=== PATIENT | female | born 1960 | race Caucasian/White ===

== ENCOUNTER 2017-01-26 21:30 | Emergency (ER) | payer MEDICAID ==
[~2017-01-26] VITALS: Ht 162.6 cm; Wt 56.0 kg
[~2017-01-26 21:30] MED LIST: AMOXICILLIN500 MG OR; ATENOLOL25 MG PO; CIPROFLOXACIN500 M1 PO; CIPROFLOXACN500 MG PO; DOXYCYC MONO100 M1 PO; ENALAPRIL10 MG PO; FLEXERIL OR; LEVAQUIN500 MG OR; LORTAB 10-325 M1 TAB PO; LORTAB 1010 MG PO; METFORMIN500 MG PO; METFORMIN850 MG PO; METRONIDAZOL500 MG PO; METRONIDAZOLE500 MG PO; MOTRIN800 MG PO; NOVOLIN N1 ML SC; PAROXETINE10 MG PO; PAXIL40 MG OR; PERCOCET 5/325M1 TAB PO; ULTRAM50 M1 PO; ULTRAM50 MG OR; ZOFRAN ODT4 MG PO; ZOFRAN ODT4 MG SL; ZOFRAN4 M1 PO; ZOFRAN4 MG/TAB PO
[2017-01-26 22:03] LABS: HEMOGLOBIN 9.3 g/dl (12.0-16.0); IMMATURE GRANULOCYTES 1.4 % (0.0-1.0); MEAN CELL VOLUME 77.1 fL CALC (80.0-100.0); MEAN CORPUSCULAR HGB 23.1 pG CALC (26.0-32.0); NEUT# 5.8 thou/uL (2.00-7.15); RED BLOOD COUNT 4.02 mill/uL (4.20-5.60); RED CELL DISTRI WIDTH 19.4 % (11.5-15.5)
[2017-01-26 22:14] LABS: ALBUMIN 3.3 g/dL (3.2-5.0); ALKALINE PHOSPHATASE 361 u/l (38-126); ANION GAP 13 (6-22 (CALC)); BILIRUBIN, TOTAL 0.3 mg/dL (0.0-1.4); BUN 9 mg/dL (7-17); BUN/CREATININE RATIO 17 (12-20 (CALC)); CALCIUM 8.6 mg/dL (8.4-10.2); CARBON DIOXIDE 29 mmol/l (22-30); CHLORIDE 99 mmol/l (95-108); CREATININE 0.5 mg/dL (0.5-1.0); GFR > 60 ML/MIN (>=60 (CALC)); GFR FOR AFR.AMER. > 60 ML/MIN (>=60 (CALC)); GLUCOSE 75 mg/dL (65-105); POTASSIUM 3.7 mmol/l (3.5-5.1); SGOT/AST 29 u/l (14-36); SGPT/ALT 31 u/l (9-52); SODIUM 138 mmol/l (137-146); TOTAL PROTEIN 6.6 g/dL (6.3-8.2)
[2017-01-26 23:00] LABS: URINE BILIRUBIN - DIPSTICK NEGATIVE (NEGATIVE); URINE BLOOD DIPSTICK MODERATE (NEGATIVE); URINE COLOR YELLOW; URINE GLUCOSE - DIPSTICK NEGATIVE (NEGATIVE); URINE KETONE TRACE mg/dL (NEGATIVE); URINE LEUK ESTERASE NEGATIVE (NEGATIVE); URINE NITRITE - DIPSTICK NEGATIVE (Negative); URINE PH 6.5 (4.5-8.0); URINE PROTEIN - DIPSTICK NEGATIVE (NEG-TRACE)
[2017-01-26 23:04] LABS: URINE CLARITY SLIGHT CLOUDY
[2017-01-26] MEDS ORDERED: PERCOCET 10/31 COMBO PO (23:04)
[2017-01-26] MEDS ORDERED: LOVENOX 10100 MG/1 M SC (23:04)
[2017-01-26] MEDS ORDERED: JANTOVEN5 MG PO (23:05)
[2017-01-26 23:12] LABS: URINE BACTERIA FEW hpf; URINE MUCUS MANY hpf (NONE-FEW); URINE SQUAMOUS EPITHELIAL CELL MODERATE EPI/hpf (0-FEW)
[2017-01-26 23:22] LABS: INTERNATIONAL NORMALIZED RATIO > 13.0 RATIO (0.7-1.3); PROTHROMBIN TIME 189.9 SECONDS (9.0-12.5)
[2017-01-27 01:20] VITALS: BP 166/79
== END 2017-01-27 01:20 | disposition short-term general hospital (02) | DRG 761 ==
LOC: ED 21:30
PROVIDERS: Emergency Medicine
DX: N93.9 Abnormal uterine and vaginal bleeding, unspecified (principal); D50.9 Iron deficiency anemia, unspecified; T45.515A Adverse effect of anticoagulants, initial encounter; Z85.038 Personal history of other malignant neoplasm of large intestine; Z79.899 Other long term (current) drug therapy

== ENCOUNTER 2017-02-08 10:55 | Emergency (ER) | payer OTHER ==
[~2017-02-08] VITALS: Ht 162.6 cm; Wt 60.0 kg
[~2017-02-08 10:55] MED LIST changes: +JANTOVEN5 MG PO; +LOVENOX 10100 MG/1 M SC; +PERCOCET 10/31 COMBO PO
[2017-02-08 11:26] LABS: HEMATOCRIT 32.1 % (37.0-47.0); IMMATURE GRANULOCYTES 0.5 % (0.0-1.0); MEAN CELL VOLUME 77.5 fL CALC (80.0-100.0); MEAN CORPUSCULAR HGB 24.2 pG CALC (26.0-32.0); MEAN CORPUSCULAR HGB CONC 31.2 g/L CALC (32.0-36.0); NEUT# 7.72 thou/uL (2.00-7.15); RED BLOOD COUNT 4.14 mill/uL (4.20-5.60); RED CELL DISTRI WIDTH 20.6 % (11.5-15.5)
[2017-02-08 11:44] LABS: ALBUMIN 3.3 g/dL (3.2-5.0); ALKALINE PHOSPHATASE 425 u/l (38-126); AMYLASE 32 u/l (30-110); ANION GAP 20 (6-22 (CALC)); BILIRUBIN, TOTAL 0.9 mg/dL (0.0-1.4); BUN 7 mg/dL (7-17); BUN/CREATININE RATIO 16 (12-20 (CALC)); CALCIUM 8.9 mg/dL (8.4-10.2); CARBON DIOXIDE 24 mmol/l (22-30); CHLORIDE 97 mmol/l (95-108); CREATININE 0.4 mg/dL (0.5-1.0); GFR > 60 ML/MIN (>=60 (CALC)); GFR FOR AFR.AMER. > 60 ML/MIN (>=60 (CALC)); GLUCOSE 335 mg/dL (65-105); LIPASE 18 u/l (23-300); POTASSIUM 4.7 mmol/l (3.5-5.1); SGOT/AST 44 u/l (14-36); SGPT/ALT 34 u/l (9-52); SODIUM 136 mmol/l (137-146)
[2017-02-08] MEDS ORDERED: DICYCLOMINE10 MG PO (11:51)
[2017-02-08] MEDS ORDERED: LEVEMIR1000 UNITS SC (11:54)
[2017-02-08] MEDS ORDERED: POLYETHYLENE GLYCO2 PO (11:55)
[2017-02-08 11:56] LABS: MYOGLOBIN 14 ng/mL (0 - 62)
[2017-02-08] MEDS ORDERED: LORTAB 10-325 M1 TAB PO (13:16)
[2017-02-08 13:17] VITALS: BP 152/80
== END 2017-02-08 13:37 | disposition home or self-care (01) | DRG 638 ==
LOC: ED 10:55
PROVIDERS: Emergency Medicine
DX: E11.65 Type 2 diabetes mellitus with hyperglycemia (principal); C18.9 Malignant neoplasm of colon, unspecified; L40.50 Arthropathic psoriasis, unspecified; I10 Essential (primary) hypertension; M06.9 Rheumatoid arthritis, unspecified; M79.7 Fibromyalgia

== ENCOUNTER 2017-04-20 22:17 | Inpatient (IN) | payer OTHER ==
[~2017-04-20] VITALS: Ht 162.6 cm; Wt 62.7 kg
[~2017-04-20 22:17] MED LIST changes: +DICYCLOMINE10 MG PO; +LEVEMIR1000 UNITS SC; +POLYETHYLENE GLYCO2 PO
--- NOTE | 2017-04-20 22:50 | NUR ---
QA/O F WITH N/V AND UPPER BACK PAIN HAS HX LIVER CA WITH IV PUMP WITH CHEMO INFUSING INTO R CHEST IV PORT DR ESTRADA INSPECTS MED NOW. ABD IS SL DISTENDED AND FIRM PT HAS HX ASCITIES AITH TAP 1 MONTH AGO FOR 5L AND SCHED FOR ANOTHER ABD TAP AFTER PET SCAN LATER THIS MONTH. QW/P/D SKIN CLEAR BREATH SOUNDS.
[2017-04-20 23:18] LABS: HEMATOCRIT 35.7 % (37.0-47.0); IMMATURE GRANULOCYTES 0.2 % (0.0-1.0); MEAN CELL VOLUME 90.4 fL CALC (80.0-100.0); MEAN CORPUSCULAR HGB 27.8 pG CALC (26.0-32.0); MEAN CORPUSCULAR HGB CONC 30.8 g/L CALC (32.0-36.0); NEUT# 7.49 thou/uL (2.00-7.15); RED BLOOD COUNT 3.95 mill/uL (4.20-5.60); RED CELL DISTRI WIDTH 17.4 % (11.5-15.5)
[2017-04-20 23:28] LABS: INTERNATIONAL NORMALIZED RATIO 3.4 RATIO (0.7-1.3)
[2017-04-20 23:32] LABS: ALBUMIN 3.6 g/dL (3.2-5.0); ALKALINE PHOSPHATASE 425 u/l (38-126); ANION GAP 16 (6-22 (CALC)); BILIRUBIN, TOTAL 1.7 mg/dL (0.0-1.4); BUN 12 mg/dL (7-17); BUN/CREATININE RATIO 23 (12-20 (CALC)); CARBON DIOXIDE 31 mmol/l (22-30); CHLORIDE 98 mmol/l (95-108); CREATININE 0.5 mg/dL (0.5-1.0); GFR > 60 ML/MIN (>=60 (CALC)); GFR FOR AFR.AMER. > 60 ML/MIN (>=60 (CALC)); GLUCOSE 77 mg/dL (65-105); POTASSIUM 3.6 mmol/l (3.5-5.1); SGOT/AST 117 u/l (14-36); SGPT/ALT 80 u/l (9-52); SODIUM 141 mmol/l (137-146); TOTAL PROTEIN 6.8 g/dL (6.3-8.2)
[2017-04-20 23:43] LABS: MYOGLOBIN 13 ng/mL (0 - 62)
[2017-04-21] VITALS (8 sets, daily range): BP systolic 136–198; BP diastolic 78–97
--- NOTE | 2017-04-21 00:30 | NUR ---
PT HAD RAC SALINE LOC DISPLACED WAS RESTARTE DL WRIST PT REMEDICATED FOR ONGOING PAIN.
--- NOTE | 2017-04-21 01:45 | NUR ---
PT FEELS BETTER HAVING LESS PAIN NO N/V.RATES PAIN AT 4 NOW
--- NOTE | 2017-04-21 02:23 | NUR ---
TO FLOOR IN IMPROVED STABLE CONDITION
--- NOTE | 2017-04-21 02:33 | NUR ---
PT ARRIVED TO UNIT VIA STRETCHER WITH ER STAFF. AMBULATED TO BATHROOM TO VOID WITH ONE PERSON ASSIST. C/O BACK PAIN AND NAUSEA. ANTIEMETIC GIVEN ORDERED. ASSESSMENT COMPLETED AT THIS TIME. ORIENTED TO ROOM AND CALL LIGHT SYSTEM. PLAN OF CARE DISCUSSED. PT ENCOURAGED TO VERBALIZE CONCERNS. STATES UNDERSTANDING. SAFETY MEASURES PUT IN PLACE. CALL LIGHT WITHIN REACH.
[2017-04-21 03:29] LABS: URINE BILIRUBIN - DIPSTICK NEGATIVE (NEGATIVE); URINE BLOOD DIPSTICK NEGATIVE (NEGATIVE); URINE CLARITY CLEAR; URINE COLOR YELLOW; URINE GLUCOSE - DIPSTICK NEGATIVE (NEGATIVE); URINE KETONE NEGATIVE (NEGATIVE); URINE LEUK ESTERASE NEGATIVE (NEGATIVE); URINE NITRITE - DIPSTICK NEGATIVE (Negative); URINE PROTEIN - DIPSTICK NEGATIVE (NEG-TRACE); URINE UROBILINOGEN - DIPSTICK 0.2 E.U./dL (0.2)
--- NOTE | 2017-04-21 07:00 | NUR ---
SHIFT CHANGE REPORT FROM MICHAELA, PT AWAKE AND ALERT, C/O ABD PAIN AND NAUSEA, IVF INFUSING, TELE MONITOR IN PLACE, CALL BROWN IN REACH.
[2017-04-21 10:49] LABS: INTERNATIONAL NORMALIZED RATIO 2.5 RATIO (0.7-1.3); PROTHROMBIN TIME 29.7 SECONDS (9.0-12.5)
--- NOTE | 2017-04-21 12:00 | NUR ---
PT CONCERNED ABOUT TURNING OFF CHEMO PUMP STATING SHE HAD APPOINTMENT WITH ONCOLOGIST FOR TODAY @ 1500 TO TURN OFF PUMP, RN DELIVERY NOTIFIED AND ADDRESSED SITUATION, CHEMO-CERTIFIED RN CONSULTED AND ADDRESSED CONCERN.
--- NOTE | 2017-04-21 15:00 | NUR ---
VISITIED PATIENT REGARDING CHEMO INFUSION. PATIENT IS SEEN BY DR PIZANO AT [facility] ([facility] FOR HER CHEMO. SHE LAST HAD CHEMO ON 04/19 AND HAS CADD PUMP WITH INFUSION COMPLETED TODAY. INFORMED PATIENT THAT WE ARE ATTEMPTING TO REACH [facility] FOR ORDERS TO DC CADD PUMP AND FLUSH PORT.
--- NOTE | 2017-04-21 16:00 | NUR ---
STILL NO ORDERS FROM [facility] REGARDING DC OF CADD PUMP. [facility] SPOKE WITH BON/ELIANA, SHE STATES SHE WILL GET ORERS AND CALL US BACK.
--- NOTE | 2017-04-21 16:30 | NUR ---
RECEIVED ORDERS TO DC CADD PUMP AND FLUSH PORT PER HOSPITAL PROTOCOL. INSTRUCTED TO GIVE PATIENT PUMP AND HAVE THEM RETURN IT TO [facility] ON MONDAY WHEN SHE REPORTS FOR HER NEXT CHEMO INFUSION.
--- NOTE | 2017-04-21 16:35 | NUR ---
CADD PUMP DC'D AND PORT FLUSHED PER PROTOCOL AND DEACCESSED WITH NEEDLE INTACT. STERILE 2X2 SECURED WITH TEGADERM APPLIED TO SITE. PUMP PLACED IN YELLOW BAG AND PLACED WITH PATIENT BELONGINGS. PATIENT INSTRUCTED TO RETURN PUMP TO [facility] WHEN SHE HAS HER NEXT TREATMENT.
--- NOTE | 2017-04-21 17:00 | NUR ---
PUMP TURNED OFF BY CHEMO-CERTIFIED RN, ALICIA HARMON, WILL CONTINUE TO MONITOR.
--- NOTE | 2017-04-21 20:02 | NUR ---
BEDSIDE REPORT RECEIVED FROM ELIANA CHENG. PT ASLEEP AT THIS TIME. NO SIGNS OF DISTRESS NOTED. RESPIRATIONS EVEN AND UNLABORED. SAFETY MEASURES IN PLACE. CALL LIGHT WITHIN REACH.
--- NOTE | 2017-04-22 00:10 | NUR ---
PT ASLEEP AT THIS TIME. QUIET WITH NO REQUESTS. NO SIGNS OF DISTRESS NOTED. RESPIRATIONS EVEN AND UNLABORED. SAFETY MEASURES REMAIN IN PLACE. CALL LIGHT WITHIN REACH.
--- NOTE | 2017-04-22 04:09 | NUR ---
PT ASLEEP AT THIS TIME. NO SIGNS OF DISTRESS NOTED. RESPIRATIONS EVEN AND UNLABORED. NO CHANGES IN ASSESSMENT NOTED. SAFETY MEASURES IN PLACE. CALL LIGHT WITHIN REACH.
[2017-04-22 04:40] VITALS: BP 155/62
--- NOTE | 2017-04-22 05:10 | NUR ---
PT UP TO BATHROOM AND C/O RIGHT FLANK PAIN. IV SITE FOUND DISLODGED TO LEFT WRIST. NEW IV START TO RAC AND ANALGESIC GIVEN WITH GOOD EFFECT. PT STATES THAT SHE IS FEELING MUCH BETTER AND HER APETITE IS BACK; INQUIRING ABOUT BREAKFAST. REQUESTED BLOOD SUGAR CHECK; 294 AT THIS TIME. DECLINED SNACK. NO OTHER REQUESTS AT THIS TIME. IV FLUIDS INFUSING INTO NEW SITE APPROPRIATELY.
--- NOTE | 2017-04-22 07:00 | NUR ---
REPORT RECIEVED FROM SPIKE JENNINGS; PT SITTING UP IN BED; PT C/O PAIN RATING 8 OUT OF 10 IN RIGHT SIDE AND FLANK; ELIANA LUCAS AT BEDSIDE TO MEDICATE; PT DENIES ANY OTHER NEEDS AT THIS TIME; CALL LIGHT WITHIN REACH; WILL CONTINUE TO MONITOR
[2017-04-22 07:04] VITALS: BP 154/81
[2017-04-22 07:12] LABS: HEMATOCRIT 39.2 % (37.0-47.0); HEMOGLOBIN 12.1 g/dl (12.0-16.0); IMMATURE GRANULOCYTES 0.4 % (0.0-1.0); MEAN CELL VOLUME 90.3 fL CALC (80.0-100.0); MEAN CORPUSCULAR HGB 27.9 pG CALC (26.0-32.0); MEAN CORPUSCULAR HGB CONC 30.9 g/L CALC (32.0-36.0); NEUT# 6.07 thou/uL (2.00-7.15); RED BLOOD COUNT 4.34 mill/uL (4.20-5.60); RED CELL DISTRI WIDTH 18.2 % (11.5-15.5)
[2017-04-22 07:27] LABS: PROTHROMBIN TIME 35.5 SECONDS (9.0-12.5)
[2017-04-22 08:47] LABS: ANION GAP 13 (6-22 (CALC)); BUN 13 mg/dL (7-17); BUN/CREATININE RATIO 25 (12-20 (CALC)); CALCIUM 8.5 mg/dL (8.4-10.2); CARBON DIOXIDE 27 mmol/l (22-30); CHLORIDE 100 mmol/l (95-108); CREATININE 0.5 mg/dL (0.5-1.0); GFR > 60 ML/MIN (>=60 (CALC)); GFR FOR AFR.AMER. > 60 ML/MIN (>=60 (CALC)); GLUCOSE 291 mg/dL (65-105); POTASSIUM 4.3 mmol/l (3.5-5.1); SODIUM 135 mmol/l (137-146)
[2017-04-22 11:12] VITALS: BP 128/68
--- NOTE | 2017-04-22 12:45 | NUR ---
PT C/O PAIN RATING 10 OUT OF 10 MEDICATED WITH DILAUDID PER PRN ORDERS; CALL LIGHT WITHIN REAC; WILL CONTINUE TO MONITOR
[2017-04-22 15:31] VITALS: BP 128/73
--- NOTE | 2017-04-22 17:00 | NUR ---
PT MEDICATED WITH ROXYCODONE PER PRN ORDERS FOR PAIN IN BACK RATING 8 OUT OF 10; NO APPARENT DISTRESS NOTED AT THIS TIME; CALL LIGHT WITHIN REACH; WILL CONTINUE TO MONITOR
--- NOTE | 2017-04-22 19:40 | NUR ---
PT RESTING IN SEMIFOWLERS WITH EYES CLOSED RESPIRATIONS EVEN AND UNLABORED. CALL LIGHT IN REACH.
[2017-04-22 20:47] VITALS: BP 138/72
--- NOTE | 2017-04-22 21:52 | NUR ---
ACCUCHECK 338, MEDICATED WITH NOVULOG 5UNITS SQ PER DR. BURDEN'S ORDER. TOLERATED WELL. BED TIME SNACK PROVIDED. MEDICATED WITH PHENERGAN IM TO RIGHT ARM FOR C/O NAUSEA. IV FLUIDS INFUSING TO RAC WITH NO COMPLICATIONS. CALL LIGHT IN REACH.
[2017-04-23 00:57] VITALS: BP 151/83
--- NOTE | 2017-04-23 01:13 | NUR ---
MEDICATED WITH DILAUDID 1MG IV FOR C/O RIGHT FLANK PAIN 06/08.
--- NOTE | 2017-04-23 03:57 | NUR ---
MEDICATED WIT ROXICODONE FOR RIGHT FLANK PAIN 06/08. RESPIRATIONS EVEN AND UNLABORED. CALL LIGHT IN REACH.
[2017-04-23 04:50] VITALS: BP 131/84
[2017-04-23 06:13] LABS: INTERNATIONAL NORMALIZED RATIO 2.3 RATIO (0.7-1.3); PROTHROMBIN TIME 26.3 SECONDS (9.0-12.5)
[2017-04-23 07:41] VITALS: BP 137/75
--- NOTE | 2017-04-23 07:46 | NUR ---
REPORT RECIEVED FROM SPIKE RAYMOND; PT RESTING IN BED WITH EYES CLOSED; NO S/S OF DISTRESS NOTED; PT EASILY AROUSABLE; VSS; PT MEDICATED WITH AM MEDS; PT DENIES ANY OTHER NEEDS AT THIS TIME; ASSESSMENT COMPLETED; IVF INFUSING AT PRESCRIBED RATE; IV SITE APPEARS HEALTHY;CALL LIGHT WITHIN REACH; WILL CONTINUE TO MONITOR
[2017-04-23 11:08] VITALS: BP 130/66
--- NOTE | 2017-04-23 11:30 | NUR ---
PT RESTING IN BED; NO S/S OF DISTRESS NOTED; PT C/O PAIN RATING 7 OUT OF 10; MEDICATED WITH ROXYCODONE PER PRN ORDERS; IVF INFUSING TO #22 TO RAC; IV SITE APPEARS HEALTHY; PT DENIES ANY OTHER NEEDS AT THIS TIME; CALL LIGHT WITHIN REACH; WILL CONTINUE TO MONITOR
[2017-04-23 15:14] VITALS: BP 129/67
--- NOTE | 2017-04-23 16:00 | NUR ---
TELE AND IV REMOVED FOR DISCHARGE; PT C/O PAIN RATING 8 OUF OF 10; MEDICATED WITH ROXYCODONE PER PRN ORDERS; PT DENIES ANY OTHER NEEDS AT THIS TIME; DISCHARGE INSTRUCTIONS GIVEN; PT STATES HER FAMILY WILL ARRIVE LATER THIS AFTERNOON; CALL LIGHT WITHIN REACH; WILL CONTINUE TO MONITOR
--- NOTE | 2017-04-23 18:44 | NUR ---
Discharge instructions given. Patient verbalizes understanding of same. Discharged in stable condition via Wheelchair to Home with family. All belongings sent with pt.
== END 2017-04-23 18:44 | disposition home or self-care (01) | DRG 948 ==
LOC: ENPENDDIS → ED 22:17 → ED-I 23:50 → ED 04-21 00:08 → MS2 04-21 00:09
PROVIDERS: Emergency Medicine; Internal Medicine; ADMIT Internal Medicine; ATTEND Internal Medicine
DX: G89.3 Neoplasm related pain (acute) (chronic) (principal); C78.7 Secondary malignant neoplasm of liver and intrahepatic bile duct; R18.8 Other ascites; E11.649 Type 2 diabetes mellitus with hypoglycemia without coma; C18.9 Malignant neoplasm of colon, unspecified; L40.50 Arthropathic psoriasis, unspecified; R11.2 Nausea with vomiting, unspecified; T45.1X5A Adverse effect of antineoplastic and immunosuppressive drugs, initial encounter; Z79.4 Long term (current) use of insulin; I10 Essential (primary) hypertension; M79.7 Fibromyalgia; D64.9 Anemia, unspecified; M06.9 Rheumatoid arthritis, unspecified; R79.1 Abnormal coagulation profile; T45.515A Adverse effect of anticoagulants, initial encounter; Z90.49 Acquired absence of other specified parts of digestive tract; Z86.718 Personal history of other venous thrombosis and embolism

== ENCOUNTER 2017-07-10 06:23 | Inpatient (IN) | payer OTHER ==
[~2017-07-10] VITALS: Ht 162.6 cm; Wt 59.0 kg
[2017-07-10 07:27] LABS: HEMATOCRIT 25.5 % (37.0-47.0); HEMOGLOBIN 8.3 g/dl (12.0-16.0); IMMATURE GRANULOCYTES 0.6 % (0.0-1.0); MEAN CELL VOLUME 91.1 fL CALC (80.0-100.0); MEAN CORPUSCULAR HGB 29.6 pG CALC (26.0-32.0); MEAN CORPUSCULAR HGB CONC 32.5 g/L CALC (32.0-36.0); NEUT# 12.24 thou/uL (2.00-7.15); RED BLOOD COUNT 2.8 mill/uL (4.20-5.60); RED CELL DISTRI WIDTH 16.1 % (11.5-15.5)
[2017-07-10 07:34] LABS: ALBUMIN 2.6 g/dL (3.2-5.0); ALKALINE PHOSPHATASE 569 u/l (38-126); AMYLASE < 30 u/l (30-110); ANION GAP 14 (6-22 (CALC)); BILIRUBIN, TOTAL 5.9 mg/dL (0.0-1.4); BUN 18 mg/dL (7-17); BUN/CREATININE RATIO 32 (12-20 (CALC)); CALCIUM 8.4 mg/dL (8.4-10.2); CARBON DIOXIDE 29 mmol/l (22-30); CHLORIDE 96 mmol/l (95-108); CREATININE 0.6 mg/dL (0.5-1.0); GFR > 60 ML/MIN (>=60 (CALC)); GFR FOR AFR.AMER. > 60 ML/MIN (>=60 (CALC)); GLUCOSE 87 mg/dL (65-105); LIPASE 11 u/l (23-300); POTASSIUM 3.7 mmol/l (3.5-5.1); SGOT/AST 89 u/l (14-36); SGPT/ALT 74 u/l (9-52); SODIUM 134 mmol/l (137-146); TOTAL PROTEIN 5.5 g/dL (6.3-8.2)
[2017-07-10 10:29] LABS: INTERNATIONAL NORMALIZED RATIO > 10.0 RATIO (0.7-1.3); PROTHROMBIN TIME > 130.0 SECONDS (9.0-12.5)
[2017-07-10] MEDS ORDERED: LEVEMIR FL100 UNIT/M SC (10:40)
[2017-07-10] MEDS ORDERED: ATENOLOL25 MG PO (10:42)
[2017-07-10] MEDS ORDERED: METOLAZONE5 MG PO (10:42)
[2017-07-10] MEDS ORDERED: OXYCODONE HCL5 MG PO (10:43)
[2017-07-10] MEDS ORDERED: COUMADIN4 MG PO (10:45)
[2017-07-10] MEDS ORDERED: ONDANSETRON4 MG PO (10:46)
[2017-07-10] MEDS ORDERED: FUROSEMIDE20 MG PO (10:46)
[2017-07-10] MEDS ORDERED: KLOR-CON M2020 MEQ PO (10:47)
[2017-07-10 12:06] VITALS: BP 109/43
[2017-07-10 15:34] VITALS: BP 100/53
[2017-07-10 17:02] LABS: MEAN CORPUSCULAR HGB 29.9 pG CALC (26.0-32.0); MEAN CORPUSCULAR HGB CONC 32.8 g/L CALC (32.0-36.0); RED BLOOD COUNT 2.01 mill/uL (4.20-5.60); RED CELL DISTRI WIDTH 16.2 % (11.5-15.5)
[2017-07-10 17:04] LABS: HEMATOCRIT 18.3 % (37.0-47.0)
[2017-07-10 18:05] LABS: URINE BLOOD DIPSTICK LARGE (NEGATIVE); URINE CLARITY TURBID; URINE COLOR YELLOW; URINE GLUCOSE - DIPSTICK NEGATIVE (NEGATIVE); URINE KETONE NEGATIVE (NEGATIVE); URINE LEUK ESTERASE NEGATIVE (NEGATIVE); URINE NITRITE - DIPSTICK NEGATIVE (Negative); URINE PH 5.5 (4.5-8.0); URINE PROTEIN - DIPSTICK TRACE mg/dL (NEG-TRACE); URINE SPECIFIC GRAVITY 1.015; URINE UROBILINOGEN - DIPSTICK 0.2 E.U./dL (0.2)
[2017-07-10 18:07] LABS: URINE BILIRUBIN - DIPSTICK MODERATE (NEGATIVE)
[2017-07-10 18:24] LABS: URINE BACTERIA FEW hpf; URINE RBC >100 RBC/hpf (0-5); URINE RED BLOOD CELL CAST FEW lpf; URINE SQUAMOUS EPITHELIAL CELL FEW EPI/hpf (0-FEW)
[2017-07-10 19:24] VITALS: BP 97/61
[2017-07-10 20:15] VITALS: BP 110/58
[2017-07-10 21:05] VITALS: BP 110/68
[2017-07-10 22:26] VITALS: BP 119/69
[2017-07-11] VITALS (14 sets, daily range): BP systolic 105–121; BP diastolic 58–77
[2017-07-11 05:46] LABS: HEMOGLOBIN 7.1 g/dl (12.0-16.0); IMMATURE GRANULOCYTES 0.7 % (0.0-1.0); MEAN CELL VOLUME 88.6 fL CALC (80.0-100.0); MEAN CORPUSCULAR HGB CONC 33.8 g/L CALC (32.0-36.0); NEUT# 16.26 thou/uL (2.00-7.15); RED BLOOD COUNT 2.37 mill/uL (4.20-5.60); RED CELL DISTRI WIDTH 16.7 % (11.5-15.5)
[2017-07-11 06:45] LABS: ANION GAP 11 (6-22 (CALC)); BUN 19 mg/dL (7-17); BUN/CREATININE RATIO 28 (12-20 (CALC)); CALCIUM 7.9 mg/dL (8.4-10.2); CARBON DIOXIDE 28 mmol/l (22-30); CHLORIDE 98 mmol/l (95-108); CREATININE 0.7 mg/dL (0.5-1.0); GFR > 60 ML/MIN (>=60 (CALC)); GFR FOR AFR.AMER. > 60 ML/MIN (>=60 (CALC)); GLUCOSE 75 mg/dL (65-105); POTASSIUM 3.7 mmol/l (3.5-5.1); SODIUM 134 mmol/l (137-146)
[2017-07-11 07:23] LABS: PROTHROMBIN TIME > 130.0 SECONDS (9.0-12.5)
[2017-07-11 07:24] LABS: INTERNATIONAL NORMALIZED RATIO > 10.0 RATIO (0.7-1.3)
[2017-07-12] VITALS (11 sets, daily range): BP systolic 108–120; BP diastolic 61–72
[2017-07-12 06:04] LABS: IMMATURE GRANULOCYTES 0.8 % (0.0-1.0); MEAN CORPUSCULAR HGB 30.1 pG CALC (26.0-32.0); MEAN CORPUSCULAR HGB CONC 34.2 g/L CALC (32.0-36.0); NEUT# 12.3 thou/uL (2.00-7.15); RED BLOOD COUNT 2.16 mill/uL (4.20-5.60); RED CELL DISTRI WIDTH 16.2 % (11.5-15.5)
[2017-07-12 06:06] LABS: ANION GAP 11 (6-22 (CALC)); BUN 24 mg/dL (7-17); BUN/CREATININE RATIO 39 (12-20 (CALC)); CALCIUM 7.9 mg/dL (8.4-10.2); CARBON DIOXIDE 28 mmol/l (22-30); CHLORIDE 94 mmol/l (95-108); CREATININE 0.6 mg/dL (0.5-1.0); GFR > 60 ML/MIN (>=60 (CALC)); GFR FOR AFR.AMER. > 60 ML/MIN (>=60 (CALC)); GLUCOSE 234 mg/dL (65-105); MAGNESIUM 1.7 mg/dL (1.6-2.3); POTASSIUM 3.7 mmol/l (3.5-5.1); SODIUM 131 mmol/l (137-146)
[2017-07-12 06:15] LABS: HEMOGLOBIN 6.5 g/dl (12.0-16.0)
[2017-07-12 06:46] LABS: INTERNATIONAL NORMALIZED RATIO 4.9 RATIO (0.7-1.3); PROTHROMBIN TIME 60.1 SECONDS (9.0-12.5)
[2017-07-13] VITALS (9 sets, daily range): BP systolic 95–164; BP diastolic 62–82
[2017-07-13 06:05] LABS: HEMATOCRIT 26.8 % (37.0-47.0); HEMOGLOBIN 9.3 g/dl (12.0-16.0); IMMATURE GRANULOCYTES 0.6 % (0.0-1.0); MEAN CELL VOLUME 86.5 fL CALC (80.0-100.0); MEAN CORPUSCULAR HGB CONC 34.7 g/L CALC (32.0-36.0); NEUT# 14.98 thou/uL (2.00-7.15); RED BLOOD COUNT 3.1 mill/uL (4.20-5.60); RED CELL DISTRI WIDTH 15.5 % (11.5-15.5)
[2017-07-13 06:18] LABS: ANION GAP 11 (6-22 (CALC)); BUN 18 mg/dL (7-17); BUN/CREATININE RATIO 38 (12-20 (CALC)); CALCIUM 6.8 mg/dL (8.4-10.2); CARBON DIOXIDE 25 mmol/l (22-30); CHLORIDE 101 mmol/l (95-108); CREATININE 0.5 mg/dL (0.5-1.0); GFR > 60 ML/MIN (>=60 (CALC)); GFR FOR AFR.AMER. > 60 ML/MIN (>=60 (CALC)); GLUCOSE 120 mg/dL (65-105); MAGNESIUM 1.5 mg/dL (1.6-2.3); POTASSIUM 3.2 mmol/l (3.5-5.1); SODIUM 134 mmol/l (137-146)
[2017-07-13 06:21] LABS: INTERNATIONAL NORMALIZED RATIO 6.6 RATIO (0.7-1.3); PROTHROMBIN TIME 82.4 SECONDS (9.0-12.5)
[2017-07-14] VITALS (8 sets, daily range): BP systolic 92–133; BP diastolic 57–86
[2017-07-14 05:47] LABS: HEMOGLOBIN 8.5 g/dl (12.0-16.0); IMMATURE GRANULOCYTES 1.1 % (0.0-1.0); MEAN CELL VOLUME 88.3 fL CALC (80.0-100.0); NEUT# 18.26 thou/uL (2.00-7.15); RED BLOOD COUNT 2.83 mill/uL (4.20-5.60); RED CELL DISTRI WIDTH 16.8 % (11.5-15.5)
[2017-07-14 05:55] LABS: ALBUMIN 1.9 g/dL (3.2-5.0); ALKALINE PHOSPHATASE 296 u/l (38-126); ANION GAP 12 (6-22 (CALC)); BUN 22 mg/dL (7-17); BUN/CREATININE RATIO 33 (12-20 (CALC)); CALCIUM 6.9 mg/dL (8.4-10.2); CARBON DIOXIDE 25 mmol/l (22-30); CHLORIDE 102 mmol/l (95-108); CREATININE 0.6 mg/dL (0.5-1.0); GFR > 60 ML/MIN (>=60 (CALC)); GFR FOR AFR.AMER. > 60 ML/MIN (>=60 (CALC)); GLUCOSE 109 mg/dL (65-105); POTASSIUM 3.1 mmol/l (3.5-5.1); SGOT/AST 110 u/l (14-36); SGPT/ALT 71 u/l (9-52); SODIUM 136 mmol/l (137-146); TOTAL PROTEIN 4.5 g/dL (6.3-8.2)
[2017-07-14 06:06] LABS: INTERNATIONAL NORMALIZED RATIO 7.2 RATIO (0.7-1.3)
== END 2017-07-14 21:00 | disposition short-term general hospital (02) | DRG 436 ==
LOC: ED 06:23 → ED-I 10:20 → ED 10:51 → MS2 10:52
PROVIDERS: Emergency Medicine; Internal Medicine; Nurse Practitioner Family; ADMIT Internal Medicine; ATTEND Internal Medicine
PROC: 0W9G3ZX Drainage of Peritoneal Cavity, Percutaneous Approach, Diagnostic (ICD-10-PCS; principal; 2017-07-10)
PROC: 30233N1 Transfusion of Nonautologous Red Blood Cells into Peripheral Vein, Percutaneous Approach (ICD-10-PCS; 2017-07-10)
PROC: 30233K1 Transfusion of Nonautologous Frozen Plasma into Peripheral Vein, Percutaneous Approach (ICD-10-PCS; 2017-07-11)
PROC: 30233N1 Transfusion of Nonautologous Red Blood Cells into Peripheral Vein, Percutaneous Approach (ICD-10-PCS; 2017-07-11)
PROC: 30233K1 Transfusion of Nonautologous Frozen Plasma into Peripheral Vein, Percutaneous Approach (ICD-10-PCS; 2017-07-11)
PROC: 30233N1 Transfusion of Nonautologous Red Blood Cells into Peripheral Vein, Percutaneous Approach (ICD-10-PCS; 2017-07-12)
PROC: 30233N1 Transfusion of Nonautologous Red Blood Cells into Peripheral Vein, Percutaneous Approach (ICD-10-PCS; 2017-07-12)
PROC: 30233K1 Transfusion of Nonautologous Frozen Plasma into Peripheral Vein, Percutaneous Approach (ICD-10-PCS; 2017-07-13)
PROC: 30233K1 Transfusion of Nonautologous Frozen Plasma into Peripheral Vein, Percutaneous Approach (ICD-10-PCS; 2017-07-14)
PROC: 30233K1 Transfusion of Nonautologous Frozen Plasma into Peripheral Vein, Percutaneous Approach (ICD-10-PCS; 2017-07-14)
DX: C78.7 Secondary malignant neoplasm of liver and intrahepatic bile duct (principal); C18.9 Malignant neoplasm of colon, unspecified; R18.0 Malignant ascites; D68.4 Acquired coagulation factor deficiency; E87.1 Hypo-osmolality and hyponatremia; K72.90 Hepatic failure, unspecified without coma; I10 Essential (primary) hypertension; F32.9 Major depressive disorder, single episode, unspecified; L40.50 Arthropathic psoriasis, unspecified; E11.9 Type 2 diabetes mellitus without complications; M79.7 Fibromyalgia; R11.2 Nausea with vomiting, unspecified; T45.1X5A Adverse effect of antineoplastic and immunosuppressive drugs, initial encounter; D50.0 Iron deficiency anemia secondary to blood loss (chronic); G89.3 Neoplasm related pain (acute) (chronic); Z86.718 Personal history of other venous thrombosis and embolism; Z87.891 Personal history of nicotine dependence; Z79.899 Other long term (current) drug therapy; Z90.49 Acquired absence of other specified parts of digestive tract
CPT/HCPCS: P9016; S0164